=== PATIENT | female | born 1970 | race Caucasian/White ===

== ENCOUNTER 2022-05-08 16:54 | Emergency (ER) | payer BC ==
[~2022-05-08] VITALS: Ht 162.5 cm; Wt 81.6 kg
[~2022-05-08 16:54] MED LIST: AC325T PO; CEFD300C3 PO; CEPH500C PO; CPR500T PO; CRAN1CAP5 PO; CYCL10TA9 PO; IBP200T PO; IBP800T PO; IBUP-30 PO; LEVO500T69 PO; METO-351 PO; NF-ESOM40C PO; NITR-65 PO; ONDA4TAB8 PO; ONDAN4ODT PO; PANT20TA PO; PHEN200T27 PO; SUCR1TAB23 PO; TRAM50TA2 PO; [UNRECOGNIZED DRUG - OTHER]; ibu 600
[2022-05-08] MEDS ORDERED: ASPIRIN 81 MG CHEW (CHILDREN'S ASA) PO ONE (17:45)
--- NOTE | 2022-05-08 18:01 | ED Cardiac General ---
History of Present Illness General Chief Complaint: Cardiac/General Problems Stated Complaint: HIGH BLOOD PRESSURE Nursing Triage Note: PT AMB TO TRIAGE WITH COMPLAINT OF HIGH BLOOD PRESSURE. SENT FROM [facility] FOR FURTHER EVALUATION. TOOK A CLONIDINE AT [facility]. HAS HX OF DIASTOLIC HEART FAILURE. History of Present Illness Date Seen by Provider: May 08, 2022 Time Seen by Provider: 17:30 Initial Comments 51 year old female presents from [facility] for HTN. She was at an appointment to establish care. She is on clonidine, losartan, and metoprolol for her blood pressure. She has been diagnosed with diastolic heart failure. 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 She reports intermittent chest pressure but denies any chest pain at this time. She has a history of GERD and is on Omperazole. She has been painting in her house. She recently moved her from [place], [place]. In addition patient reports when her blood pressure is high she will see flashes of lights in the periphery of her vision. She is not experiencing this now. She did earlier today. She reports history of anxiety and is concerned that her current symptoms might be related to that. Timing/Duration: 1 day Severity: mild Prior CP/Workup: echocardiography, stress test Modifying Factors: improves with rest NTG SL CARBOY FILLER: No ASA po CARBOY FILLER: No Associated Systoms: No Chest Pain, No Loss of Appetite, No Malaise, No Nausea/Vomiting, No Weakness Allergies and Home Medications Allergies Coded Allergies: Penicillins (Unverified Allergy, Mild, 02/25/08) Sulfa (Sulfonamide Antibiotics) (Unverified Allergy, Mild, 02/25/08) erythromycin base (Unverified Allergy, Mild, 02/25/08) latex (Unverified Allergy, Mild, 02/25/08) Patient Home Medication List Home Medication List Reviewed: Yes Metoprolol Succinate (Toprol Xl) 25 Mg Tab, 25 MG PO DAILY Prescribed by: GLENN POWERS on 04/28/14 1108 Nitrofurantoin Monohyd/M-Cryst (Macrobid 100 mg Capsule) 100 Mg Capsule, 1 TAB PO BID Prescribed by: FLAVIO MARKS on 05/08/222000 Ondansetron (Zofran Odt) 4 Mg/Udtablet Tab.rapdis, 4 MG PO Q4H Prescribed by: DEENA RTULEDGE on 02/17/14 1308 Pantoprazole Sodium (Protonix) 20 Mg Tablet.dr, 40 MG PO DAILY Prescribed by: DEENA RUTLEDGE on 01/26/14 1025 Sucralfate (Carafate) 1 Gm Tablet, 1 GM PO QID Prescribed by: DEENA RUTLEDGE on 01/26/14 1025 Review of Systems Review of Systems Constitutional: no symptoms reported, see HPI EENTM: See HPI; No Blurred Vision, No Double Vision Respiratory: No Symptoms Reported, See HPI; Denies Shortness of Air, Denies SOA With Exertion, Denies SOA at Rest Cardiovascular: See HPI, Chest Pain; Denies Irregular Heart Rate; Lightheadedness, Other (HTN) Gastrointestinal: See HPI; Denies Abdominal Pain, Denies Nausea, Denies Vomiting All Other Systems Reviewed Negative Unless Noted: Yes Past Gheiaol-Qppnez-Qeblxa Hx Patient Social History Tobacco Use?: Yes Smoking Status: Current Everyday Smoker Use of E-Cig and/or Vaping dev: No Substance use?: No Alcohol Use?: Yes Alcohol Frequency: Once in a while Pt feels they are or have been: No Past Medical History Bowel Surgery, Section, Gallbladder, Hysterectomy Hypertension 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 Disorders: No Female 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 Disorders: 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 Sexually Transmitted Disease: No HIV/AIDS: No Kidney Infection Gastroesophageal Reflux, Ulcer, Gall Bladder Disease Chronic Back Pain Loss of Vision: Denies Hearing Impairment: Denies Anxiety Family Medical History Reviewed Nursing Family Hx Alcoholism 03 MOTHER Family history: Arthritis 03 MOTHER Family history: Asthma 09 SISTER History of - respiratory disease 09 SISTER (copd) Psychotic disorder 09 SISTER Seizure disorder 09 SISTER Visual impairment 09 SISTER (wears glasses ) 09 SISTER (legal blind ) No Pertinent Family Hx Physical Exam Vital Signs Vital Signs - First Documented 05/08/22 05/08/22 17:04 18:12 Temp 37.1 Pulse 77 Resp 16 B/P (MAP) 177/92 (120) Pulse Ox 98 O2 Delivery Room Air Capillary Refill : Less Than 3 Seconds Height, Weight, BMI Height: 5'4.00" Weight: 161lbs. 6.0oz. [id number]; 30.00 BMI Method:Stated General Appearance: No Apparent Distress, WD/WN HEENT: PERRL/EOMI, TMs Normal, Normal ENT Inspection, Pharynx Normal Neck: Full Range of Motion, Normal Inspection, Non Tender, Supple Respiratory: Chest Non Tender, Lungs Clear, Normal Breath Sounds Cardiovascular: Regular Rate, Rhythm, No Murmur, Normal Peripheral Pulses Gastrointestinal: Normal Bowel Sounds, Non Tender, Soft Neurologic/Psychiatric: Alert, Oriented x3, No Motor/Sensory Deficits, Normal Mood/Affect Skin: Normal Color, Warm/Dry Progress/Results/Core Measures Results/Orders Lab Results Laboratory Tests Test 05/08/22 17:40 05/08/22 18:20 05/08/22 19:35 Range/Units Prothrombin Time 12.6 12.2-14.7 SEC INR Comment 0.9 0.8-1.4 Activated Partial Thromboplast Time 21 L 24-35 SEC White Blood Count 12.9 H 4.3-11.0 10^3/uL Red Blood Count 4.41 3.80-5.11 10^6/uL Hemoglobin 14.7 11.5-16.0 g/dL Hematocrit 42 35-52 % Mean Corpuscular Volume 96 80-99 fL Mean Corpuscular Hemoglobin 33 25-34 pg Mean Corpuscular Hemoglobin Concent 35 32-36 g/dL Red Cell Distribution Width 12.8 10.0-14.5 % Platelet Count 319 130-400 10^3/uL Mean Platelet Volume 9.6 9.0-12.2 fL Immature Granulocyte % (Auto) 0 % Neutrophils (%) (Auto) 68 42-75 % Lymphocytes (%) (Auto) 25 12-44 % Monocytes (%) (Auto) 5 0-12 % Eosinophils (%) (Auto) 2 0-10 % Basophils (%) (Auto) 0 0-10 % Neutrophils # (Auto) 8.8 H 1.8-7.8 10^3/uL Lymphocytes # (Auto) 3.2 1.0-4.0 10^3/uL Monocytes # (Auto) 0.7 0.0-1.0 10^3/uL Eosinophils # (Auto) 0.2 0.0-0.3 10^3/uL Basophils # (Auto) 0.1 0.0-0.1 10^3/uL Immature Granulocyte # (Auto) 0.0 0.0-0.1 10^3/uL Sodium Level 139 135-145 MMOL/L Potassium Level 3.8 3.6-5.0 MMOL/L Chloride Level 108 H 98-107 MMOL/L Carbon Dioxide Level 21 21-32 MMOL/L Anion Gap 10 5-14 MMOL/L Blood Urea Nitrogen 6 L 7-18 MG/DL Creatinine 0.77 0.60-1.30 MG/DL Estimat Glomerular Filtration Rate 95 BUN/Creatinine Ratio 8 Glucose Level 87 70-105 MG/DL Calcium Level 8.7 8.5-10.1 MG/DL Corrected Calcium 8.7 8.5-10.1 MG/DL Magnesium Level 2.0 1.6-2.4 MG/DL Total Bilirubin 0.4 0.1-1.0 MG/DL Aspartate Amino Transf (AST/SGOT) 11 5-34 U/L Alanine Aminotransferase (ALT/SGPT) 12 0-55 U/L Alkaline Phosphatase 52 40-136 U/L Myoglobin 31.6 10.0-92.0 NG/ML Troponin I < 0.028 <0.028 NG/ML Total Protein 7.2 6.4-8.2 GM/DL Albumin 4.0 3.2-4.5 GM/DL Urine Color YELLOW Urine Clarity CLEAR Urine pH 7.0 5-9 Urine Specific [place] 1.010 L 1.016-1.022 Urine Protein NEGATIVE NEGATIVE Urine Glucose (UA) NEGATIVE NEGATIVE Urine Ketones NEGATIVE NEGATIVE Urine Nitrite NEGATIVE NEGATIVE Urine Bilirubin NEGATIVE NEGATIVE Urine Urobilinogen 0.2 < = 1.0 MG/DL Urine Leukocyte Esterase 1+ H NEGATIVE Urine RBC (Auto) 2+ H NEGATIVE Urine RBC 2-5 H /HPF Urine WBC 0-2 /HPF Urine Squamous Epithelial Cells 2-5 /HPF Urine Crystals NONE /LPF Urine Bacteria FEW H /HPF Urine Casts NONE /LPF Urine Mucus NEGATIVE /LPF Urine Culture Indicated YES My Orders Orders - FLAVIO MARKS Cbc With Automated Diff (05/08/22 17:37) Magnesium (05/08/22 17:37) Chest 1 View, Ap/Pa Only (05/08/22 17:37) Ekg Tracing (05/08/22 17:37) Comprehensive Metabolic Panel (05/08/22 17:37) Myoglobin Serum (05/08/22 17:37) Protime With Inr (05/08/22 17:37) Partial Thromboplastin Time (05/08/22 17:37) O2 (05/08/22 17:37) Monitor-Rhythm Ecg Trace Only (05/08/22 17:37) Ed Iv/Invasive Line Start (05/08/22 17:37) Troponin I [place] (05/08/22 17:37) Aspirin Chewable Tablet (Baby Aspirin Ch (05/08/22 17:45) Ed Iv/Invasive Line Start (05/08/22 18:01) Ns Iv 1000 Ml (Sodium Chloride 0.9%) (05/08/22 18:15) Pantoprazole Injection (Protonix Injecti (05/08/22 18:08) Ua Culture If Indicated (05/08/22 19:02) Urine Culture (05/08/22 19:35) Nitrofurantoin Capsule,Macro (Macrobid C (05/08/22 20:01) Medications Given in ED Current Medications Medications Dose Ordered Sig/Naren Route Start Time Stop Time Status Last Admin Dose Admin Aspirin 324 mg ONCE ONCE PO 05/08/22 17:45 05/08/22 17:46 DC 05/08/22 18:00 324 MG Vital Signs/I&O 05/08/22 05/08/22 17:04 18:12 Temp 37.1 Pulse 77 Resp 16 B/P (MAP) 177/92 (120) Pulse Ox 98 O2 Delivery Room Air Blood Pressure Mean: 120 Progress Progress Note : Time: 17:30 Progress Note Patient assessed, will obtain labs, EKG and chest x-ray. 1800 blood pressure 150s/80-90. improved without medications. Patient reports feeling calmer. Assured EKG showed no ST elevation. 1900 Labs WNL, awaiting UA results. BP has remained 130-150/78-90. 1945 UTI noted, will start Macrobid now. Discharge instructions and return precautions reviewed with the patient Initial ECG Impression Date: May 08, 2022 Initial ECG Impression Time: 17:46 Initial ECG Rate: 62 Initial ECG Rhythm: Normal Sinus Initial ECG Intervals: Normal Initial ECG Intervals MT 132, QRST 78, QTc 439, QTc 446. Mcclusky P21, QRS 35, T16 Initial ECG Impression: Normal Initial ECG Comparisson: No Previous ECG Available Comment No ST Elevation. Departure Impression Primary Impression: Hypertensive heart disease Qualified Codes: I11.0 - Hypertensive heart disease with heart failure; I50.32 - Chronic diastolic (congestive) heart failure Additional Impression: UTI (urinary tract infection) Qualified Codes: N30.01 - Acute cystitis with hematuria Disposition: HOME, SELF-CARE Condition: Stable Departure-Patient Inst. Decision time for Depature: 19:05 Referrals: [facility] (PCP/Family) Primary Care Physician JAYY RAUSCH MD FACP FAC CCDS GLENN POWERS MD Patient Instructions: High Blood Pressure (DC) Add. Discharge Instructions: Continue all medications as prescribed. Take antibiotics as prescribed. Increase water intake, 16 ounces every 2 hours while awake. Eat 1 cup of fresh blueberries or drink 1 cup of cranberry juice daily. Establish with eye doctor. Continue to see your phone operator in [place] or consider establishing with a phone operator in [place]. Follow-up at [facility] as needed. Assure you keep windows are open when painting and drink extra water. Return to the emergency department for new, urgent healthcare problems. All discharge instructions reviewed with patient and/or family. Voiced understanding. Scripts Nitrofurantoin Monohyd/M-Cryst (Macrobid 100 mg Capsule) 100 Mg Capsule 1 TAB PO BID, #10 CAP 0 Refills Prov: FLAVIO MARKS 05/08/22 FLAVIO MARKS May 08, 2022 18:01
[2022-05-08] MEDS ORDERED: PANTOPRAZOLE 40 MG (PROTONIX) VIAL IV STA (18:08)
--- NOTE | 2022-05-08 18:12 | Diagnostic Imaging Report ---
INDICATION: Chest pain. COMPARISON: 04/27/2014. FINDINGS: Lungs are clear. No failure, effusion, or pneumothorax. IMPRESSION: No acute appearing abnormality. Dictated by: Dictated on workstation # [id number]
[2022-05-08] MEDS ORDERED: NS IV 1000 ML 1,000 ML IV SCH (18:15)
[2022-05-08 18:18] LABS: INR 0.9 (0.8-1.4); PROTHROMBIN TIME PATIENT 12.6 SEC (12.2-14.7)
[2022-05-08 18:30] LABS: BASOPHILS # (AUTO) 0.1 10^3/uL (0.0-0.1); BASOPHILS % (AUTO) 0 % (0-10); EOSINOPHILS # (AUTO) 0.2 10^3/uL (0.0-0.3); EOSINOPHILS % (AUTO) 2 % (0-10); HEMATOCRIT 42 % (35-52); HEMOGLOBIN 14.7 g/dL (11.5-16.0); LYMPHOCYTES # (AUTO) 3.2 10^3/uL (1.0-4.0); LYMPHOCYTES % (AUTO) 25 % (12-44); MEAN CORPUSCULAR HEMOGLOBIN 33 pg (25-34); MEAN CORPUSCULAR HGB CONC 35 g/dL (32-36); MEAN CORPUSCULAR VOLUME 96 fL (80-99); MEAN PLATELET VOLUME 9.6 fL (9.0-12.2); MONOCYTES # (AUTO) 0.7 10^3/uL (0.0-1.0); MONOCYTES % (AUTO) 5 % (0-12); NEUTROPHILS # (AUTO) 8.8 10^3/uL (1.8-7.8); NEUTROPHILS % (AUTO) 68 % (42-75); PLATELET COUNT 319 10^3/uL (130-400); WHITE BLOOD COUNT 12.9 10^3/uL (4.3-11.0)
[2022-05-08 18:45] LABS: POTASSIUM 3.8 MMOL/L (3.6-5.0)
[2022-05-08 18:46] LABS: CALCIUM 8.7 MG/DL (8.5-10.1)
[2022-05-08 18:48] LABS: TOTAL PROTEIN 7.2 GM/DL (6.4-8.2)
[2022-05-08 18:50] LABS: BILIRUBIN,TOTAL 0.4 MG/DL (0.1-1.0)
[2022-05-08 18:51] LABS: CREATININE SERUM 0.77 MG/DL (0.60-1.30)
[2022-05-08 19:40] LABS: BILIRUBIN,URINE NEGATIVE (NEGATIVE); CLARITY,URINE CLEAR; COLOR,URINE YELLOW; GLUCOSE, URINE (UA) NEGATIVE (NEGATIVE); KETONES,URINE NEGATIVE (NEGATIVE); LEUKOCYTE ESTERASE ,URINE 1+ (NEGATIVE); NITRITE,URINE NEGATIVE (NEGATIVE); PROTEIN,URINE NEGATIVE (NEGATIVE)
[2022-05-08 19:53] LABS: BACTERIA,URINE FEW /HPF; WBC,URINE 0-2 /HPF
[2022-05-08] MEDS ORDERED: NITROFURANTOIN 100 MG (MACROBID) CAPSULE PO STA (20:01)
[2022-05-08] MEDS ORDERED: NITR-65 PO (20:01)
[2022-05-08 20:12] VITALS: BP 156/87
== END 2022-05-08 20:11 | disposition home or self-care (01) ==
LOC: EDUNIT# 16:54 → ER 16:58
DX: I11.0 Hypertensive heart disease with heart failure (principal); I50.30 Unspecified diastolic (congestive) heart failure; N39.0 Urinary tract infection, site not specified; K21.9 Gastro-esophageal reflux disease without esophagitis; F17.200 Nicotine dependence, unspecified, uncomplicated; Z79.899 Other long term (current) drug therapy; Z91.040 Latex allergy status; Z88.0 Allergy status to penicillin; Z88.1 Allergy status to other antibiotic agents; Z88.2 Allergy status to sulfonamides
CPT/HCPCS: 36415; 71045; 80053; 81000; 83735; 83874; 84484; 85025; 85610; 85730; 87077; 87088; 93005; 93041